=== PATIENT | female | born 1985 | race Caucasian/White ===

== ENCOUNTER 2019-09-02 10:35 | Emergency (ER) | payer MEDICAID, SELFPAY ==
[2019-09-02 10:44] VITALS: BP 137/90; PULSE 91; RESP 16; TEMP 36.9; O2SAT 99
--- NOTE | 2019-09-02 11:02 | ED.DENTAL ---
HPI - Dental/Oral General Chief complaint: Dental/Oral Stated complaint: tooth ache Time Seen by Provider: 09/02/19 10:52 Source: patient and RN notes reviewed Mode of arrival: ambulatory Limitations: no limitations History of Present Illness HPI Narrative: Patient presents today complaining of a 2-day history of right lower dental pain and swelling that continues to worsen. States the affected tooth has been broken for several years, but not causing pain until a few days ago. She has been taking Fioricet and Tylenol without relief. She does not have a dentist. She does smoke cigarettes. MD Complaint: tooth pain Related Data Allergies Allergy/AdvReac Type Severity Reaction Status Date / Time codeine Allergy Unknown Nausea Verified 09/02/19 10:53 Review of Systems Review of Systems: Narrative: CONSTITUTIONAL: Denies body aches, fever, chills, or sweats. EYES: Denies visual changes, redness, or discharge. ENT: Denies rhinorrhea, congestion, sore throat, or otalgia.+ Dental pain and right lower jaw swelling CARDIOVASCULAR: Denies chest pain, palpitations, or edema. RESPIRATORY: Denies cough or dyspnea. GASTROINTESTINAL: Denies abdominal pain, nausea, vomiting, or diarrhea. GENITOURINARY: Denies dysuria or hematuria. SKIN: Denies rash, itching, or wounds. MUSCULOSKELETAL: Denies back pain, joint pain, or myalgia. NEUROLOGIC: Denies headache, numbness, tingling, or weakness. PSYCH: Denies depression or anxiety. PMFSH Past Medical History Medical History (Updated 09/02/19 @ 11:08 by Leidy Boswell, [facility], ) Delivery with history of Migraine Surgical History Surgical History (Updated 09/02/19 @ 11:08 by Leidy Boswell, [facility], ) History of dilation and curettage Family History Family History (Updated 12/11/15 @ 09:59 by DOCTOR UNKNOWN) Other Cerebrovascular accident Family history of arthritis Family history of malignant neoplasm Social History Social History Smoking status: Heavy tobacco smoker Comments At time of signature, I have reviewed and agree with nursing past medical, surgical, social and family history unless otherwise noted. Please see nursing chart for further information. There is no relevant family history pertinent to the presenting complaint Exam Narrative: Exam Narrative: GENERAL: Well-appearing, well-nourished, and in mild pain distress. HEAD: Normocephalic, atraumatic. EYES: EOMI. No redness or drainage. Conjunctivae normal. ENT: Mucous membranes pink and moist. Tenderness to tooth 30. It is loose with palpation and brown in color at the base. The back one third of the tooth is missing. Patient has mild swelling of the right lower jaw. Throat normal. Uvula midline. NECK: Normal AROM. Supple. Right submandibular lymphadenopathy. CHEST: No respiratory distress. EXTREMITIES: Normal range of motion. No edema. SKIN: Warm, dry, no rash. Capillary refill normal. Normal skin turgor. NEURO: No focal deficits. Alert and oriented x3. Gait steady. PSYCH: Normal affect. No signs of depression or anxiety. Course Vital Signs Vital signs: Vital Signs Temperature 98.5 F 09/02/19 10:44 Pulse Rate 91 09/02/19 10:44 Respiratory Rate 16 09/02/19 10:44 Blood Pressure 137/90 09/02/19 10:44 Pulse Oximetry 99 09/02/19 10:44 Temperature 98.5 F 09/02/19 10:44 Pulse Rate 91 09/02/19 10:44 Respiratory Rate 16 09/02/19 10:44 Blood Pressure 137/90 09/02/19 10:44 Pulse Oximetry 99 09/02/19 10:44 Reviewed. Pt has been instructed to follow up with her PCP regarding her elevated blood pressure today. MDM - Dental/Oral Differential Diagnosis Differential diagnosis: Likely gingival abscess, dental caries, toothache, dental abscess and fracture of tooth Critical Care Time Critical Care Time Critical Care Time: No Discharge Plan Discharge Clinical Impression: Dental abscess Patient Disposition: Home, Self-Care Condition: Sta
== END 2019-09-02 11:11 | disposition home or self-care (01) ==
PROVIDERS: Emergency Provider Nurse Practitioner
DX: K02.9 Dental caries, unspecified (principal); K04.7 Periapical abscess without sinus; K03.81 Cracked tooth; F17.210 Nicotine dependence, cigarettes, uncomplicated
CPT/HCPCS: 99213; G0463